=== PATIENT | female | born 2000 | race African-American/Black ===

== ENCOUNTER 2022-12-25 17:44 | Emergency (ER) | payer MEDICAID ==
[2022-12-25 18:06] VITALS: BP 118/69
[2022-12-25 18:27] LABS: BASOPHILS % (AUTO) 0.4 %; EOSINOPHILS # (AUTO) 0.1 10^3/uL (0.0-0.7); EOSINOPHILS % (AUTO) 0.9 %; HCT - HEMATOCRIT 35.4 % (37.0-47.0); HGB - HEMOGLOBIN 11.6 g/dL (12.0-16.0); LYMPHOCYTES # (AUTO) 2.2 10^3/uL (1.5-3.5); LYMPHOCYTES % (AUTO) 21.3 %; MEAN CORPUSCULAR HEMOGLOBIN 28.2 pg (27.0-31.0); MEAN CORPUSCULAR HGB CONC 32.8 g/dL (32.0-36.0); MEAN CORPUSCULAR VOLUME 86.1 fL (81.0-99.0); MEAN PLATELET VOLUME 9.4 fL (7.9-10.8); MONOCYTES # (AUTO) 0.8 10^3/uL (0.0-1.0); MONOCYTES % (AUTO) 7.8 %; NEUTROPHILS # (AUTO) 7.3 10^3/uL (1.5-6.6); NEUTROPHILS % (AUTO) 69.4 %; PLT - PLATELET COUNT 469 10^3/uL (130-450); RED BLOOD COUNT 4.11 10^6/uL (4.20-5.40); RED CELL DISTRIBUTION WIDTH 12.6 % (12.0-15.0); WHITE BLOOD COUNT 10.5 x10^3/uL (4.8-10.8)
[2022-12-25 18:42] LABS: ALBUMIN 4.3 g/dL (3.2-5.5); ALBUMIN/GLOBULIN RATIO 1.1 (1.0-2.2); BILIRUBIN,TOTAL 0.4 mg/dL (0.2-1.0); CALCIUM 9.4 mg/dL (8.5-10.3); CREATININE 0.7 mg/dL (0.4-1.0); POTASSIUM 3.9 mmol/L (3.5-5.0); TOTAL PROTEIN 8.1 g/dL (6.7-8.2)
--- NOTE | 2022-12-25 18:42 | ED Physician Documentation ---
History of Present Illness - Stated complaint Stated Complaint: FEM - Chief complaint Chief Complaint: Abd Pain - History obtained from History obtained from: Patient - History of Present Illness Timing: Today Pain level max: 3 Pain level now: 3 - Additonal information Additional information: Patient is a 22-year-old female, 2 para 1 who lives in [place]. She is here visiting. She states that she had vaginal bleeding starting today. She thinks she is about 8 weeks . She has had pelvic cramping as well. She states she is not on any medications at home. Does not use any drugs. No alcohol. No vaginal discharge. Review of Systems Constitutional: denies: Fever, Chills GI: denies: Vomiting, Diarrhea : denies: Dysuria, Frequency, Hesitancy Skin: denies: Rash Musculoskeletal: denies: Neck pain, Back pain Neurologic: denies: Headache PD PAST MEDICAL HISTORY - Past Medical History Past Medical History: No - Past Surgical History Past Surgical History: No - Present Medications Home Medications: Ambulatory Orders Medication Instructions Recorded Confirmed No Known Home Medications 12/25/22 12/25/22 - Allergies Allergies/Adverse Reactions: Allergies Allergy/AdvReac Type Severity Reaction Status Date / Time amoxicillin Allergy Itching Verified 12/25/22 18:06 Penicillins Allergy Itching Verified 12/25/22 18:06 - Living Situation Living Situation: reports: With family Living Arrangement: reports: At home - Social History Does the pt have substance abuse?: No - Family History Family history: reports: Non contributory PD ED PE NORMAL - Vitals Vital signs reviewed: Yes - General General: Alert and oriented X 3, No acute distress - HEENT HEENT: Moist mucous membranes - Neck Neck: Supple, no meningeal sign - Cardiac Cardiac: RRR, Strong equal pulses - Respiratory Respiratory: No respiratory distress, Clear bilaterally - Abdomen Abdomen: Soft, Non tender, Non distended - Back Back: No CVA TTP, No spinal TTP - Derm Derm: Warm and dry - Extremities Extremities: No deformity, No edema, No calf tenderness / cord - Neuro Neuro: Alert and oriented X 3 - Psych Psych: Normal mood, Normal affect Results - Vitals Vitals: Vital Signs - 24 hr 12/25/22 18:04 Temperature 36.3 C L Heart Rate 93 Respiratory 16 Rate Blood Pressure 118/69 O2 Saturation 100 Oxygen O2 Source Room air - Labs Labs: Laboratory Tests 12/25/22 12/25/22 12/25/22 18:20 18:20 18:20 WBC 10.5 RBC 4.11 L Hgb 11.6 L Hct 35.4 L MCV 86.1 MCH 28.2 MCHC 32.8 RDW 12.6 Plt Count 469 H MPV 9.4 Neut # (Auto) 7.3 H Lymph # (Auto) 2.2 [place] # (Auto) 0.8 Eos # (Auto) 0.1 Baso # (Auto) 0.0 Absolute Nucleated RBC 0.00 Nucleated RBC % 0.0 Sodium 137 Potassium 3.9 Chloride 107 Carbon Dioxide 25 Anion Gap 5.0 L BUN 13 Creatinine 0.7 Estimated GFR (MDRD) 106 Glucose 98 Calcium 9.4 Total Bilirubin 0.4 AST 15 ALT 12 Alkaline Phosphatase 66 Total Protein 8.1 Albumin 4.3 Globulin 3.8 Albumin/Globulin Ratio 1.1 Lipase 32 HCG, Quant < 0.60 - Rads (name of study) OB US Relevant Findings:: Final report received, See rad report PD Medical Decision Making - ED course Complexity details: reviewed results, re-evaluated patient, considered differential, d/w patient ED course: Patient has no evidence of a on ultrasound today. Her quantitative hCG is less than 0.6, consistent with a non female. Appears that the cramping and spotting is likely the start of her normal menses. We will have her follow-up with her doctor for further care. No emergency medical condition at this time. Patient counseled regarding signs and symptoms for which I believe and urgent re-evaluation would be necessary. Patient with good understanding of and agreement to plan and is comfortable going home at this time This document was made in part using voice recognition software. While efforts are made to proofread this document, sound alike and grammatical errors may occur. Departure - Departure Disposition: 01 Home, Self Care Clinical Impression: Complete miscarriage Condition: Good Instructions: ED Miscarriage Completed Follow-Up: your,doctor in 1 week [Other] Comments: Your quantitative hCG level today is less than 0.6, this is a negative test. Your ultrasound does not show any evidence of at this time either. Please follow-up with your doctor for further care. Based on your laboratory tests and your ultrasound, it would appear that you had a miscarriage at some point between your positive test and now. PROCEDURE: OB First Trimester w/TV INDICATIONS: 8 weeks preg VB OUTSIDE/PRIOR DATING DATA: Last menstrual period (LMP): Unsure. TECHNIQUE: Real-time scanning was performed of the fetus and maternal pelvic organs, with image documentation. Endovaginal scanning was also performed to better visualize the fetus and maternal ovaries. COMPARISON: None available at this time FINDINGS: No gestational sac is apparent. No pole. No significant adnexal abnormality. IMPRESSION: of unknown location. No gestational sac or pole identified. Reported prior imaging at [facility] 3 weeks ago is not available for viewing at this time. Follow-up laboratory and imaging are recommended. Discharge Date/Time: 12/25/22 20:07
--- NOTE | 2022-12-25 19:47 | Ultrasound Report ---
PROCEDURE: OB First Trimester w/TV INDICATIONS: 8 weeks preg VB OUTSIDE/PRIOR DATING DATA: Last menstrual period (LMP): Unsure. TECHNIQUE: Real-time scanning was performed of the fetus and maternal pelvic organs, with image documentation. Endovaginal scanning was also performed to better visualize the fetus and maternal ovaries. COMPARISON: None available at this time FINDINGS: No gestational sac is apparent. No pole. No significant adnexal abnormality. IMPRESSION: of unknown location. No gestational sac or pole identified. Reported prior imaging at [facility] 3 weeks ago is not available for viewing at this time. Follow-up laboratory and imaging are recommended. Reviewed by: Gabriel Hinds MD on 12/25/2022 7:46 PM PDT Approved by: Gabriel Hinds MD on 12/25/2022 7:46 PM PDT Station ID: [id number]
== END 2022-12-25 20:07 | disposition home or self-care (01) ==
LOC: ED 17:44
DX: O03.9 Complete or unspecified spontaneous abortion without complication (principal)
CPT/HCPCS: 36415; 80053; 83690; 84702; 85025; 99283; 99284